=== PATIENT | male | born 1970 | race Caucasian/White ===

== ENCOUNTER 2019-06-09 17:53 | Emergency (ER) | payer MEDICAID ==
[~2019-06-09] VITALS: Ht 180.3 cm; Wt 125.6 kg
[2019-06-09 18:22] VITALS: BP 142/93
--- NOTE | 2019-06-09 19:45 | NUR ---
PT AMBULATED TO BED 12
--- NOTE | 2019-06-09 19:50 | NUR ---
49 y/o male referred from podiatry for further eval and treatment for left great toe wound to under toe drainage; 4 days ago noted redness and swelling up to ankle---pt started to take left over clindamycin from home---admits redness has improved; no noted drainage. left toe has small opening underneath. Dryness noted. Patient stated, "the yellowing started yesterday, and the black color started a few days. I've been taking clindamycin for 2 months now ." + 2 pedal pulses; noted edema; non-pitting. No pain noted, but states to numbness and tingling. Ermd made aware of status, side [id number]. at bedside. Will continue to monitor. hx--dm, htn rx---clindamycin
[2019-06-09] MEDS ORDERED: VANCOMYCIN 1,000 MG in DEXTROSE 5% 250 ML IV ONE (20:25)
[2019-06-09] MEDS ORDERED: PIPERACILLIN/TAZOBACTAM 3.375 GM in DEXTROSE 5% 50 ML IV ONE (20:25)
[2019-06-09 20:34] VITALS: BP 142/93
--- NOTE | 2019-06-09 20:34 | NUR ---
PATIENT ELOPED FROM FACILITY. DISCHARGE INSTRUCTIONS NOT GIVEN TO PATIENT. DR. MABRY NOTIFIED.
== END 2019-06-09 20:34 | disposition left against medical advice (07) ==
LOC: MED 17:53
DX: L03.031 Cellulitis of right toe (principal); E11.9 Type 2 diabetes mellitus without complications; I10 Essential (primary) hypertension
CPT/HCPCS: 99283